=== PATIENT | male | born 1935 | race Caucasian/White ===

== ENCOUNTER 2018-12-09 20:48 | Observation (INO) ==
[2018-12-09] MEDS ORDERED: IOPAMIDOL 100 ML BOTTLE IV ONE (20:49)
[2018-12-09 21:26] LABS: POC Pro Time 11.9 sec (11.9-14.5)
[2018-12-09 21:27] LABS: POC Blood Urea Nitrogen 20 mg/dl (8-23); POC CO2 24 mmol/L (22-30); POC Calcium, Ionized 1.07 mmol/L (1.16-1.32); POC Chloride 102 mmol/L (96-108); POC Glucose, Random 113 mg/dL (70-105); POC Potassium 3.7 mmol/L (3.3-5.1); POC Sodium 140 mmol/L (133-145)
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
[2018-12-09 22:09] LABS: Basophils # (Auto) 0 K/mcL (0.0-0.3); Basophils % (Auto) 0.2 % (0.0-2.0); Eosinophils # (Auto) 0 K/mcL (0.0-0.7); Eosinophils % (Auto) 0.5 % (0.0-7.0); Granulocytes % (Auto) 65.9 % (38.0-78.0); Hematocrit 47.3 % (41.0-55.0); Hemoglobin 15.7 g/dL (13.5-16.5); Lymphocytes # (Auto) 1.3 K/mcL (1.5-4.8); Lymphocytes % (Auto) 16.1 % (15.5-49.0); Mean Cell Volume 91.1 fL (80.0-100.0); Mean Corpuscular HGB Conc 33.1 g/dL (31.0-36.0); Mean Platelet Volume 8.5 fL (7.4-10.4); Monocytes # (Auto) 1.4 K/mcL (0.1-0.9); Monocytes % (Auto) 17.3 % (1.0-12.0); Platelet Count 167 K/mcL (140-440); Red Cell Distribution Width 13.1 % (11.5-14.5); WBC 7.9 K/mcL (4.5-11.0)
[2018-12-09 22:16] LABS: INR 1.1 (0.9-1.1); Prothrombin Time 14.1 sec (11.9-14.5)
[2018-12-09 22:33] LABS: ALT/SGPT 28 U/l (0-40); AST/SGOT 31 U/l (0-37); Albumin 4.2 gm/dL (3.2-5.2); Albumin/Globulin Ratio 1.4 (1.0-2.3); Alkaline Phosphatase 65 U/L (39-117); Bilirubin,Total 0.8 mg/dL (0.0-1.0); Blood Urea Nitrogen 19 mg/dl (8-23); Calcium 8.7 mg/dl (8.6-10.4); Carbon Dioxide 22 mmol/L (22-30); Chloride 102 mmol/L (96-108); Globulin 2.9 gm/dL (2.2-3.7); Glomerular Filtration Rate 62; Glucose 110 mg/dL (70-105); Potassium 3.8 mmol/L (3.3-5.1); Sodium 138 mmol/L (133-145)
[2018-12-09 23:41] LABS: Appearance,Urine CLEAR; Bilirubin,Urine NEG (NEG); Color,Urine YELLOW; Culture Indicated,Urine NO; Glucose,Urine (UA) NEGATIVE (NEG); Ketones,Urine NEG (NEG); Leukocyte Esterase,Urine NEG /uL (NEG); Nitrate,Urine NEG (NEG); Protein,Urine NEG (NEG); Urine Blood NEG mg/dL (<0.03); Urobilinogen,Urine NEG (NEG)
[2018-12-10] MEDS ORDERED: ACETAMINOPHEN 325 MG TABLET PO PRN (01:23)
[2018-12-10] MEDS ORDERED: ONDANSETRON 4 MG/2 ML VIAL IV PRN (01:23)
[2018-12-10] MEDS ORDERED: NALOXONE HCL 0.4 MG/ML VIAL IV PRN (01:23)
[2018-12-10] MEDS ORDERED: IPRATROPIUM/ALBUTEROL 3 ML AMPUL.NEB NEB PRN (01:23)
[2018-12-10] MEDS: 0.45 % SODIUM CHLORIDE 1,000 ML IV SCH ×2 (01:45→10:29)
--- NOTE | 2018-12-10 04:25 | Cat Scan Report ---
CLINICAL INFORMATION: Altered level of consciousness stroke symptoms COMPARISON: None. TECHNIQUE: 2.5 mm helical slices were obtained in the skull base to vertex. Following reconstruction, axial reformatted images were reviewed at bone and parenchymal windows. The exam was performed using radiation dose optimization techniques including, but not limited to, automated exposure control, adjustment of the mA and/or kV according to patient size and use of iterative reconstruction technique. FINDINGS: The ventricles, sulci, fissures, and cisterns are symmetrically enlarged compatible with moderate age-related atrophy. No subdural hemorrhage or extra-axial fluid collection appreciated. Moderate patchy chronic ischemic changes in the cerebral white matter with scattered remote lacunar infarcts in the basal ganglia and deep cerebral white matter appreciated. There is no intercerebral hemorrhage, mass effect, edema or other acute finding. No osseous abnormality. IMPRESSION: Mild atrophy and chronic ischemic changes in in the cerebral white matter with scattered remote lacunar infarcts in the basal ganglia. No acute findings. Severe bilateral ethmoid sinusitis with a a 2 cm polyp and scattered mucosal thickening right maxillary sinus. Interpreted and Authenticated by: Richar Tam 12/10/18
--- NOTE | 2018-12-10 05:10 | Cat Scan Report ---
CLINICAL INFORMATION: Leg weakness and decreased mental status. Evaluate for CVA COMPARISON: None. TECHNIQUE: 80 cc of Isovue-300 were injected intravenously followed by 40 cc of normal saline flush. Using SmartPrep, 0.625 helical slices were obtained from the thoracic aortic arch through the solomon of Ven[place]. Following reconstruction, 2.5 mm sagittal, coronal and axial reformatted images were processed. MIPS , 3-D volume rendering and CPR images were also constructed. The exam was performed using radiation dose optimization techniques including, but not limited to, automated exposure control, adjustment of the mA and/or kV according to patient size and use of iterative reconstruction technique. FINDINGS: The thoracic aortic arch is normal in diameter with diffuse intimal thickening. Aortic branching is conventional. The entire cervical left vertebral artery is occluded that commencing at the origin. There is a small amount of contrast within the intracranial portion of the left vertebral artery due to reflux from the contralateral right vertebral artery which is patent. The brachiocephalic, both subclavian, both common, internal and external carotid arteries are widely patent. There is mild atherosclerotic plaque in the carotid bifurcations. There is no soft tissue abnormality. At C5-6, large broad disc spur complex left-sided asymmetry and facet arthropathy result in moderate central canal and severe bilateral lateral recess/IV foraminal narrowing. At C6-7 large broad disc spur complex results in severe central canal and left lateral recess/IV foraminal narrowing. At C7-T1, moderate broad disc spur complex right-sided asymmetry results in severe bilateral lateral recess/IV foraminal and moderate central canal narrowing. IMPRESSION: 1. 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 The intracranial left vertebral artery is patent and opacified via reflux from the right vertebral artery 2. Severe degenerative change in lower spine resulting in central canal and severe lateral recess IV foraminal narrowing. 3. Anterior subluxation of the TMJs. Interpreted and Authenticated by: Richar Tam 12/10/18
--- NOTE | 2018-12-10 05:17 | Cat Scan Report ---
CLINICAL INFORMATION: Acute leg weakness and decreased mental status evaluate for CVA COMPARISON: None. TECHNIQUE: 80 cc of Isovue-300 were injected intravenously , and using SmartPrep to maximize cerebral arterial opacification, 0.625 mm helical slices were obtained from the skull base through the cerebral vertex. Following reconstruction , sagittal, coronal and axial reformatted images were processed and reviewed at multiple windows and levels. 3D volume rendered and MIP images were acquired at a independent workstation. The exam was performed using radiation dose optimization techniques including, but not limited to, automated exposure control, adjustment of the mA and/or kV according to patient size and use of iterative reconstruction technique. FINDINGS: There is moderate calcific atherosclerotic plaque within the cavernous portions of the intracranial internal carotid arteries which do not result in significant stenosis . The remaining intracranial internal carotid, anterior and middle cerebral, intracranial vertebral, basilar and posterior cerebral arteries are well opacified and normal in contour and caliber without significant stenosis, occlusion or other focal pathology. The superficial and deep cerebral veins and the deep venous sinuses are widely patent IMPRESSION: Calcific atherosclerotic plaque within the cavernous portion of both intracranial internal carotid arteries, but no stenosis. The remainder of exam is normal Severe bilateral ethmoid sinusitis. Moderate right maxillary sinusitis with a two cm polyp. Anterior subluxation of both TMJs Interpreted and Authenticated by: Richar Tam 12/10/18
[2018-12-10 05:46] LABS: Basophils # (Auto) 0 K/mcL (0.0-0.3); Basophils % (Auto) 0.2 % (0.0-2.0); Eosinophils # (Auto) 0.1 K/mcL (0.0-0.7); Eosinophils % (Auto) 1.2 % (0.0-7.0); Granulocytes % (Auto) 62.2 % (38.0-78.0); Hematocrit 45.6 % (41.0-55.0); Hemoglobin 14.7 g/dL (13.5-16.5); Lymphocytes # (Auto) 1.4 K/mcL (1.5-4.8); Lymphocytes % (Auto) 18.2 % (15.5-49.0); Mean Cell Volume 93.2 fL (80.0-100.0); Mean Corpuscular HGB Conc 32.3 g/dL (31.0-36.0); Mean Platelet Volume 8.6 fL (7.4-10.4); Monocytes # (Auto) 1.4 K/mcL (0.1-0.9); Monocytes % (Auto) 18.2 % (1.0-12.0); Platelet Count 156 K/mcL (140-440); RBC 4.89 M/mcL (4.50-5.90); Red Cell Distribution Width 14.1 % (11.5-14.5); WBC 7.7 K/mcL (4.5-11.0)
[2018-12-10] MEDS ORDERED: 0.9 % SODIUM CHLORIDE 10 ML SYRINGE IV SCH (06:00)
[2018-12-10 06:18] LABS: Estimated Average Glucose(eAG) 128 mg/dL; Hemoglobin A1C 6.1 % HGB (4.0-6.0)
[2018-12-10 06:21] LABS: ALT/SGPT 27 U/l (0-40); AST/SGOT 29 U/l (0-37); Albumin 3.9 gm/dL (3.2-5.2); Albumin/Globulin Ratio 1.6 (1.0-2.3); Alkaline Phosphatase 56 U/L (39-117); Bilirubin,Direct < 0.2 mg/dL (0.0-0.3); Bilirubin,Total 0.9 mg/dL (0.0-1.0); Blood Urea Nitrogen 19 mg/dl (8-23); Calcium 8.2 mg/dl (8.6-10.4); Carbon Dioxide 25 mmol/L (22-30); Chloride 102 mmol/L (96-108); Cholesterol 133 mg/dl (<200); Gamma Glutamyl Transpeptidase 18 U/L (8-61); Globulin 2.5 gm/dL (2.2-3.7); Glomerular Filtration Rate 79; Glucose 88 mg/dL (70-105); HDL Cholesterol 23 mg/dl (>40); LDL Cholesterol,Calculated 96 mg/dl (SEE CHART); Lactate Dehydrogenase 220 U/L (94-250); Non-HDL Cholesterol 110 (LDL TARGET+30); Phosphorous 3.1 mg/dL (2.7-4.5); Potassium 3.7 mmol/L (3.3-5.1); Sodium 139 mmol/L (133-145); Triglycerides 72 mg/dl (<150); Uric Acid 4.4 mg/dL (2.5-8.0)
[2018-12-10] MEDS ORDERED: AMOXICILLIN/POTASSIUM CLAV 875 MG TABLET PO SCH (08:00)
[2018-12-10] MEDS ORDERED: ASPIRIN 325 MG ENTERIC COATED TABLET PO SCH (09:00)
[2018-12-10] MEDS ORDERED: HEPARIN 5,000 UNIT/ML VIAL SQ SCH (09:00)
--- NOTE | 2018-12-10 09:31 | Magnetic Resonance Report ---
CLINICAL INFORMATION: Dizziness and bilateral lower extremity weakness. Evaluate for CVA. 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 Moderate chronic ischemic changes are noted in the deep cerebral white matter with confluence in the deep periventricular regions. There are also scattered chronic ischemic foci in both inferior cerebellar vermis bilaterally. No regions of restricted diffusion to suggest acute infarct. There is no evidence of hemorrhage, mass effect or other acute finding. Increased signal within the intracranial left vertebral artery compatible with known occlusion on the associated CT cervical carotid arteriogram. Signal void within the visualized right vertebral, basilar intracranial internal carotid anterior middle and posterior cerebral arteries is unremarkable. IMPRESSION: 1. Mild atrophy and moderate chronic ischemic changes in the deep cerebral white matter and cerebellar vermis expected for age. There is no evidence of acute infarct or hemorrhage. 2. Increased signal within the intracranial left vertebral artery compatible with known occlusion. This was also seen on accompanying CT cervical carotid arteriogram. Signal void within the remainder of the intracerebral arteries is normal. Interpreted and Authenticated by: Richar Tam 12/10/18
--- NOTE | 2018-12-10 15:24 | Discharge Summary ---
Medical - DS: Prov Patient information: Note initiated : 12/10/18 at 3:20 pm Service Date, if different from initiated Date: [] Patient: Christiano Aldrich 83 y/o M admitted on 12/10/18 for stroke like symptoms. Chief Complaint: [] Date of admission: 12/10/18 01:16 Discharge date: 12/10/18 Primary care physician: Elpidio Ibarra Consults: 12/10/18 Consult to Physician [CONS] Stat Comment: Consulting Provider: Afsaneh Lazaro Reason For Exam: Physician to Consult Discharging clinician: Afsaneh Lazaro Medical - DS: Meds - Discharge Medications Prescriptions: Amoxicillin/Potassium Clav [Augmentin] 875 mg PO BIDCC #13 tab Aspirin [Ecotrin] 325 mg PO DAILY #30 tab.ec Atorvastatin [Lipitor] 40 mg PO HS #30 tab Active and Home Medications: Home Medications allopurinol 100 mg tablet 100 mg PO QDAY #1 tab 10/02/16 [Rx Confirmed 12/10/18 Last Taken 12/08/18 05:00] omega-3 fatty acids 1,000 mg capsule 1,000 mg PO QDAY #1 cap 10/02/16 [Rx Confirmed 12/10/18 Last Taken 12/08/18 05:00] Medical - DS: Hosp Hospital course: OBSERVATION, SAME DAY DISCHARGE Mr. Aldrich is a 83 year old M presented to the emergency room yesterday evening with complaints of weakness and confusion. The patient was driving from [place], the patient's noticed around 3 PM that the patient was not himself, he was not answering appropriately as well as was not driving correctly. He was swaying, there was a question about neglect on the left side, answering inappropriately to questions as well as intending to take the wrong exits. The patient then took over the driving and drove for a while the patient's symptoms resolved and the patient then drove back home. The patient does not remember completely the episode. After going home and discussing this episode with the family they decided to bring the patient in for further evaluation. At the time of presentation to the emergency room the patient had no symptoms, and was nearly back to baseline. 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 The patient also had some sinusitis The patient's case was reviewed with stroke neurology, who advised the patient to be admitted to the hospital for further work-up. Patient was monitored on telemetry, no A. fib was noted. Echocardiogram was done results of which are pending. Patient had an MR of the brain to rule out stroke, the diffusion- weighted images did not show any evidence of acute infarction. A1c was 6.1, LDL 95. The patient labs show normal WBC count, and chemistries were unremarkable The patient will be discharged home, with follow-up at the [facility] as well as the primary care provider. He has been started on aspirin 325 mg daily as well as atorvastatin 40 mg at bedtime. For his sinusitis we are going to treat the patient with Augmentin for total of 7 days Discharge diagnosis: Sinusitis, TIA - Time Spent with Patient Total time spent providing and/or coordinating discharge services: Greater than 30 minutes Medical - DS: Exam - Constitutional Vitals: Vital Signs Temp Pulse Pulse Resp BP BP Pulse Ox 12/10/18 12:20 99.6 F H 88 16 136/79 99 12/10/18 08:00 99.0 F 78 16 147/89 99 12/10/18 04:16 100.1 F H 16 128/81 12/10/18 01:47 89 16 135/83 99 12/10/18 01:33 89 12 154/78 95 12/10/18 01:16 99.3 F H 91 H 12 154/78 96 12/10/18 00:01 82 22 146/85 98 12/09/18 23:47 78 20 132/90 93 12/09/18 23:31 80 24 H 137/87 96 12/09/18 23:16 81 19 141/93 95 12/09/18 23:02 21 101/87 12/09/18 22:47 82 21 116/83 94 12/09/18 22:34 81 18 146/85 97 12/09/18 22:25 82 19 135/95 92 12/09/18 22:02 81 21 131/71 93 12/09/18 21:47 84 31 H 125/74 91 12/09/18 21:39 84 20 92 12/09/18 21:31 85 138/79 92 12/09/18 21:29 86 130/81 93 12/09/18 20:49 90 18 142/90 94 Intake and Output 12/10/18 12/10/18 12/10/18 05:59 13:59 21:59 Intake Total 1140 Output Total 650 1331 Balance -650 -191 Intake: IV 900 Sodium Chloride 0.45% 1,000 ml 900 @ 125 mls/hr IV .Q8H [facility] Rx#: [id number] Oral 240 Output: Void Amount 650 1325 # of times incontinent of urine 6 Other: Meal Lunch Percent of Meal Consumed 75% Urine Odor Normal Stool Size Moderate Stool Color Brown Stool Consistency Normal for Patient # Bowel Movements 2 Weight 231 lb Additional comments: Constitutional; Afebrile, cooperative, alert, not in distress. Eyes- No icterus, , No periorbital swelling Ears- Ext ear normal, hearing normal to conversation. Neck- Midline trachea, supple Respiratory system: Air Entry equal on both sides, No crackles or wheezing, no rhonchi. CVS- Rate rhythm regular, S1,S2 heard, no gallop, no rub. Abdomen- Soft nontender abdomen, no organomegaly, no tenderness, no guarding or rigidity, [employer]IAN- AOOx3, cranial nerves are intact, sensory system intact to touch, strength 5 out of 5 in both upper and lower extremities. Babinski is equivocal Medical - DS: Data Labs on day of discharge: Labs from last 24 hours 12/10/18 12/10/18 12/09/18 03:30 03:30 22:40 WBC 7.7 RBC 4.89 Hgb 14.7 Hct 45.6 POC Hct MCV 93.2 MCH 30.1 MCHC 32.3 RDW 14.1 Plt Count 156 MPV 8.6 Gran % 62.2 Lymph % (Auto) 18.2 [place] % (Auto) 18.2 H Eos % (Auto) 1.2 Baso % (Auto) 0.2 Gran # 4.8 Lymph # (Auto) 1.[address] [place] # (Auto) 1.4 H Eos # (Auto) 0.1 Baso # (Auto) 0 POC PT PT POC INR INR APTT POC Sodium Sodium 139 POC Potassium Potassium 3.7 POC Chloride Chloride 102 Carbon Dioxide 25 POC Total CO2 Anion Gap 12.0 POC BUN BUN 19 Creatinine 0.9 POC Creatinine GFR Calculation 79 BUN/Creatinine Ratio Glucose 88 POC Glucose Hemoglobin A1c 6.1 H Estim Average Glucose 128 Uric Acid 4.4 Calcium 8.2 L POC WB Ioniz Calcium Phosphorus 3.1 Magnesium 2.0 Total Bilirubin 0.9 Direct Bilirubin < 0.2 GGT 18 AST 29 ALT 27 Alkaline Phosphatase 56 Lactate Dehydrogenase 220 Troponin T Total Protein 6.4 Albumin 3.9 Globulin 2.5 Albumin/Globulin Ratio 1.6 Triglycerides 72 Cholesterol 133 LDL Cholesterol, Calc 96 Non-HDL Cholesterol 110 HDL Cholesterol 23 L TSH Urine Color Yellow Urine Appearance Clear Urine pH 6.0 Ur Specific [place] 1.060 H Urine Protein Neg Urine Glucose (UA) Negative Urine Ketones Neg Urine Occult Blood Neg Urine Nitrate Neg Urine Bilirubin Neg Urine Urobilinogen Neg Ur Leukocyte Esterase Neg Ur Culture Indicated? No 12/09/18 12/09/18 12/09/18 21:05 21:05 21:05 WBC RBC Hgb Hct POC Hct MCV MCH MCHC RDW Plt Count MPV Gran % Lymph % (Auto) [place] % (Auto) Eos % (Auto) Baso % (Auto) Gran # Lymph # (Auto) [place] # (Auto) Eos # (Auto) Baso # (Auto) POC PT PT POC INR INR APTT POC Sodium Sodium Cancelled POC Potassium Potassium Cancelled POC Chloride Chloride Cancelled Carbon Dioxide Cancelled POC Total CO2 Anion Gap Cancelled POC BUN BUN Cancelled Creatinine Cancelled POC Creatinine GFR Calculation Cancelled BUN/Creatinine Ratio Cancelled Glucose Cancelled POC Glucose Hemoglobin A1c Estim Average Glucose Uric Acid Calcium Cancelled POC WB Ioniz Calcium Phosphorus Magnesium Total Bilirubin Cancelled Direct Bilirubin GGT AST Cancelled ALT Cancelled Alkaline Phosphatase Cancelled Lactate Dehydrogenase Troponin T < 0.01 Total Protein Cancelled Albumin Cancelled Globulin Cancelled Albumin/Globulin Ratio Cancelled Triglycerides Cholesterol LDL Cholesterol, Calc Non-HDL Cholesterol HDL Cholesterol TSH 1.34 Urine Color Urine Appearance Urine pH Ur Specific [place] Urine Protein Urine Glucose (UA) Urine Ketones Urine Occult Blood Urine Nitrate Urine Bilirubin Urine Urobilinogen Ur Leukocyte Esterase Ur Culture Indicated? 12/09/18 12/09/18 12/09/18 21:05 21:05 21:05 WBC 7.9 RBC 5.20 Hgb 15.7 Hct 47.3 POC Hct 49.0 MCV 91.1 MCH 30.2 MCHC 33.1 RDW 13.1 Plt Count 167 MPV 8.5 Gran % 65.9 Lymph % (Auto) 16.1 [place] % (Auto) 17.3 H Eos % (Auto) 0.5 Baso % (Auto) 0.2 Gran # 5.2 Lymph # (Auto) 1.[address] [place] # (Auto) 1.4 H Eos # (Auto) 0 Baso # (Auto) 0 POC PT 11.9 PT POC INR 1.0 INR APTT 36 POC Sodium 140 Sodium 138 POC Potassium 3.7 Potassium 3.8 POC Chloride 102 Chloride 102 Carbon Dioxide 22 POC Total CO2 24 Anion Gap 14.0 POC BUN 20 BUN 19 Creatinine 1.1 POC Creatinine 1.0 GFR Calculation 62 BUN/Creatinine Ratio Glucose 110 H POC Glucose 113 H Hemoglobin A1c Estim Average Glucose Uric Acid Calcium 8.7 POC WB Ioniz Calcium 1.07 L Phosphorus Magnesium Total Bilirubin 0.8 Direct Bilirubin GGT AST 31 ALT 28 Alkaline Phosphatase 65 Lactate Dehydrogenase Troponin T Total Protein 7.1 Albumin 4.2 Globulin 2.9 Albumin/Globulin Ratio 1.4 Triglycerides Cholesterol LDL Cholesterol, Calc Non-HDL Cholesterol HDL Cholesterol TSH Urine Color Urine Appearance Urine pH Ur Specific [place] Urine Protein Urine Glucose (UA) Urine Ketones Urine Occult Blood Urine Nitrate Urine Bilirubin Urine Urobilinogen Ur Leukocyte Esterase Ur Culture Indicated? 12/09/18 21:05 WBC RBC Hgb Hct POC Hct MCV MCH MCHC RDW Plt Count MPV Gran % Lymph % (Auto) [place] % (Auto) Eos % (Auto) Baso % (Auto) Gran # Lymph # (Auto) [place] # (Auto) Eos # (Auto) Baso # (Auto) POC PT PT 14.1 POC INR INR 1.1 APTT POC Sodium Sodium POC Potassium Potassium POC Chloride Chloride Carbon Dioxide POC Total CO2 Anion Gap POC BUN BUN Creatinine POC Creatinine GFR Calculation BUN/Creatinine Ratio Glucose POC Glucose Hemoglobin A1c Estim Average Glucose Uric Acid Calcium POC WB Ioniz Calcium Phosphorus Magnesium Total Bilirubin Direct Bilirubin GGT AST ALT Alkaline Phosphatase Lactate Dehydrogenase Troponin T Total Protein Albumin Globulin Albumin/Globulin Ratio Triglycerides Cholesterol LDL Cholesterol, Calc Non-HDL Cholesterol HDL Cholesterol TSH Urine Color Urine Appearance Urine pH Ur Specific [place] Urine Protein Urine Glucose (UA) Urine Ketones Urine Occult Blood Urine Nitrate Urine Bilirubin Urine Urobilinogen Ur Leukocyte Esterase Ur Culture Indicated? Medical - DS: A/P - Patient/Caregiver Discharge Instructions Activity: increase activity as tolerated Diet: Cardiac Additional Instructions: A referral has been sent to [facility] in [place] ; they will contact you after reviewing your hospital information. Please start taking aspirin 325 mg tablet once daily, take this medication with food, this medication can increase the risk of bleeding so if you notice any blood in the stools or black stools please stop taking this medication and talk to your primary care provider Start taking atorvastatin [generic Lipitor] once a day Take Augmentin 1 tablet twice a day until you finish a course this is for treatment of sinusitis At the time of discharge the echocardiogram has not been interpreted, if there is any significant finding on the echo that needs to be addressed on an immediate basis I will call you and update you with the plan. Make sure you follow-up with your primary care provider in a week - Follow up Plan Follow up with: Elpidio Ibarra MD [Primary Care Provider] - 12/23/18 10:30 am Disposition: Home, Self-Care Prognosis: Fair Rehab Potential: Fair I certify that the patient requires SNF services: No Overall status at discharge: patient is progressing back to baseline Medical - DS: Qual - VTE Deep Vein Thrombosis/Pulmonary Embolism Present on Admission: No
[2018-12-10] MEDS ORDERED: ATORVASTATIN 20 MG TABLET PO SCH (21:00)
--- NOTE | 2018-12-13 01:42 | Internal Med History&Physical ---
Medical - H&P: HPI Patient information: Note initiated : 12/13/18 at 1:42 am Service Date, if different from initiated Date: [] Patient: Christiano Aldrich 83 y/o M admitted on 12/10/18 for stroke like symptoms. Chief Complaint: [] History of present illness: see discharge summary Medical - H&P: Meds Home Medications Medication Instructions Recorded Confirmed Type allopurinol 100 mg tablet 100 mg PO QDAY #1 tab 10/02/16 12/10/18 Rx omega-3 fatty acids 1,000 mg 1,000 mg PO QDAY #1 cap 10/02/16 12/10/18 Rx capsule Amoxicillin/Potassium Clav 875 mg PO BIDCC #13 tab 12/10/18 Rx [Augmentin] Aspirin [Ecotrin] 325 mg PO DAILY #30 tab.ec 12/10/18 Rx Atorvastatin [Lipitor] 40 mg PO HS #30 tab 12/10/18 Rx Allergies Allergy/AdvReac Type Severity Reaction Status Date / Time No Known Drug Allergies Allergy Verified 12/10/18 05:11 Medical - H&P: Exam - Constitutional Vitals: Temp Pulse Resp BP Pulse Ox 99.6 F H 88 16 136/79 99 12/10/18 16:34 12/10/18 16:34 12/10/18 16:34 12/10/18 16:34 12/10/18 16:34 Medical - H&P: Reslt - Labs CBC & Chem 7: 12/10/18 03:30 12/10/18 03:30 Medical - H&P: Qual - Stroke Onset of Symptoms Date: 12/09/18 Onset of Symptoms Time: 15:00 - VTE Deep Vein Thrombosis/Pulmonary Embolism Present on Admission: No
== END 2018-12-10 16:00 | disposition home or self-care (01) ==
LOC: ICU 20:48 → ED 20:48 → ICU 12-10 01:16
PROVIDERS: ADMIT Internal Medicine; ATTEND Internal Medicine